=== PATIENT | female | born 1980 | race Caucasian/White ===

== ENCOUNTER 2022-06-20 09:41 | Outpatient (REF) | payer OTHER, SELFPAY ==
--- NOTE | ~2022-06-20 | CT_ITS ---
EXAMINATION: CT HEAD WITHOUT CONTRAST CLINICAL INFORMATION: 42-year-old with migraines. COMPARISON: None TECHNIQUE: Contiguous axial imaging was performed from the skull base to vertex without intravenous administration of contrast. This CT examination was performed using dose optimization techniques as appropriate, variously including the following: *Automated exposure control *Adjustment of mA and/or kV according to patient size (this includes techniques or standardized protocols for targeted exams where dose is matched to indication/reason for exam; i.e. extremities or head) *Use of iterative reconstruction technique DLP: 676 mGy-cm FINDINGS: The brain is normal in morphology and attenuation. There is no evidence for infarction, hemorrhage, extra-axial fluid collection, space-occupying process or mass effect. Rainey-white matter differentiation is well maintained. No structural malformations. The ventricular system and subarachnoid spaces are within normal limits without hydrocephalus. The visualized intraorbital soft tissue structures are symmetric and normal in attenuation. The calvarium is intact. The visualized airspaces are unopacified. The visualized extracranial soft tissue structures appear symmetric and normal in attenuation. CT/CT head/brain wo IV con IMPRESSION: Normal noncontrast CT of the brain.
== END 2022-06-20 09:42 | disposition home or self-care (01) ==
LOC: HO.CT 09:41
PROVIDERS: Visit Provider Psychiatry & Neurology Neurology
DX: G43.909 Migraine, unspecified, not intractable, without status migrainosus (principal)
CPT/HCPCS: 70450